=== PATIENT | female | born 1955 | race Two or more races ===

== ENCOUNTER 2016-12-25 11:03 | Emergency (ER) | payer SELFPAY ==
[~2016-12-25] VITALS: Ht 152.4 cm; Wt 74.8 kg
[2016-12-25 11:38] LABS: BASO % 1 % (0-3); EOS % 3 % (0-3); HEMATOCRIT 39.8 % (36.0-47.0); HEMOGLOBIN 13.9 g/dL (12.0-15.5); LYMPH # 1.3 x10^3/uL (1.0-4.8); LYMPH % 34 % (24-48); MEAN CORPUSCULAR HEMOGLOBIN 33 pg (25-35); MEAN CORPUSCULAR HGB CONC 35 g/dL (31-37); MEAN CORPUSCULAR VOLUME 94 fL (79-100); MONO % 7 % (0-9); NEUT % 56 % (31-73); PLATELET COUNT 171 x10^3/uL (140-400); RED BLOOD COUNT 4.21 x10^6/uL (3.50-5.40); RED CELL DISTRIBUTION WIDTH 13.7 % (11.5-14.5); WHITE BLOOD COUNT 3.8 x10^3/uL (4.0-11.0)
--- NOTE | 2016-12-25 11:50 | EKG ---
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
[2016-12-25 11:51] LABS: PROTHROMBIN TIME PATIENT 12.2 SEC (11.7-14.0)
[2016-12-25 11:53] LABS: CALCIUM 9.3 mg/dL (8.5-10.1); CREATININE 0.6 mg/dL (0.6-1.0); GFR 102.3; POTASSIUM 3.6 mmol/L (3.5-5.1)
[2016-12-25 11:58] LABS: ALBUMIN 3.8 g/dL (3.4-5.0); MAGNESIUM 1.9 mg/dL (1.8-2.4); TOTAL BILIRUBIN 0.3 mg/dL (0.2-1.0); TOTAL PROTEIN 7.7 g/dL (6.4-8.2)
--- NOTE | 2016-12-25 12:26 | RAD ---
Portable chest, 12/25/2016: History: Dizziness, lightheadedness, headache The heart size and pulmonary vascularity are normal. The lungs are clear. There is no evidence of pleural fluid. IMPRESSION: No acute cardiopulmonary abnormality is detected.
[2016-12-25] MEDS ORDERED: IV NORMAL SALINE 1000ML BAG 1,000 ML IV ONE (12:30)
[2016-12-25] MEDS ORDERED: KETOROLAC TROMETHAMINE 30 MG/ML INJ. IV ONE (12:30)
[2016-12-25] MEDS ORDERED: MECLIZINE HCL 12.5 MG TABLET. PO ONE (12:30)
--- NOTE | 2016-12-25 12:48 | PHYS DOC ---
Past Medical History Past Medical History: GERD Alcohol Use: None Drug Use: None Adult General Chief Complaint Chief Complaint: DIZZY/LIGHT HEADED HPI HPI Patient is a 61 year old female who presents with dizziness and headache. Patient's been having intermittent symptoms since Saturday, she notes it worsens when she makes sudden movements and when she attempts to walk. She cannot recall if she's had these symptoms in the past. She is attempted allergy medication 1 without relief. She states she has chronic seasonal allergies and has had chronic highness drainage without change. Denies any known fevers, no focal weakness. Her primary care doctors at the [facility] [place] at . She also takes acid reflux medication. Review of Systems Review of Systems Constitutional: Denies fever or chills [] Eyes: Denies change in visual acuity, redness, or eye pain [] HENT: Denies nasal congestion or sore throat [] Respiratory: Denies cough or shortness of breath [] Cardiovascular: Denies Chest pain GI: Denies abdominal pain, nausea, vomiting, bloody stools or diarrhea [] : Denies dysuria or hematuria [] Musculoskeletal: Denies back pain or joint pain [] Integument: Denies rash or skin lesions [] Neurologic: Denies focal weakness or sensory changes [] Current Medications Current Medications Current Medications Medications (Trade) Dose Ordered Sig/Casey Start Time Stop Time Status Last Admin Dose Admin Ketorolac Tromethamine (Toradol) 30 mg 1X ONCE 12/25/16 12:30 12/25/16 12:31 DC 12/25/16 13:05 30 MG Meclizine HCl (Antivert) 25 mg 1X ONCE 12/25/16 12:30 12/25/16 12:31 DC 12/25/16 13:04 25 MG Sodium Chloride 1,000 ml @ 1,000 mls/hr 1X ONCE 12/25/16 12:30 12/25/16 13:29 DC 12/25/16 13:04 1,000 MLS/HR Allergies Allergies Allergies Coded Allergies Type Severity Reaction Last Updated Verified No Known Drug Allergies 12/25/16 No Physical Exam Physical Exam Constitutional: Well developed, well nourished, no acute distress, non-toxic appearance. [] HENT: Normocephalic, atraumatic, bilateral external ears normal, oropharynx moist, no oral exudates, nose normal. [] Eyes: PERRLA, EOMI, conjunctiva normal, no discharge. [] Neck: Normal range of motion, no tenderness, supple, no stridor. [] Cardiovascular:Heart rate regular with regular rhythm, no murmur [] Lungs & Thorax: Bilateral breath sounds clear to auscultation, no wheeze or crackles Abdomen: Bowel sounds normal, soft, no tenderness, no masses, no pulsatile masses. [] Skin: Warm, dry, no erythema, no rash. [] Back: No tenderness, no CVA tenderness. [] Extremities: No tenderness, no cyanosis, no clubbing, ROM intact, no edema. [] Neurologic: Alert and oriented X 3, normal motor function, normal sensory function, no focal deficits noted. cranial nerves II through XII intact, normal cerebellar function with finger to nose, normal heel to butler bilaterally Current Patient Data Vital Signs Vital Signs Date Time Temp Pulse Resp B/P (MAP) Pulse Ox O2 Delivery O2 Flow Rate FiO2 12/25/16 14:33 68 14 126/62 (83) 98 Room Air 12/25/16 11:19 98.0 98.0 Lab Values Laboratory Tests Test 12/25/16 11:22 12/25/16 11:26 Glucose (Fingerstick) 137 mg/dL (70-99) H White Blood Count 3.8 x10^3/uL (4.0-11.0) L Red Blood Count 4.21 x10^6/uL (3.50-5.40) Hemoglobin 13.9 g/dL (12.0-15.5) Hematocrit 39.8 % (36.0-47.0) Mean Corpuscular Volume 94 fL (79-100) Mean Corpuscular Hemoglobin 33 pg (25-35) Mean Corpuscular Hemoglobin Concent 35 g/dL (31-37) Red Cell Distribution Width 13.7 % (11.5-14.5) Platelet Count 171 x10^3/uL (140-400) Neutrophils (%) (Auto) 56 % (31-73) Lymphocytes (%) (Auto) 34 % (24-48) Monocytes (%) (Auto) 7 % (0-9) Eosinophils (%) (Auto) 3 % (0-3) Basophils (%) (Auto) 1 % (0-3) Neutrophils # (Auto) 2.1 x10^3uL (1.8-7.7) Lymphocytes # (Auto) 1.3 x10^3/uL (1.0-4.8) Monocytes # (Auto) 0.2 x10^3/uL (0.0-1.1) Eosinophils # (Auto) 0.1 x10^3/uL (0.0-0.7) Basophils # (Auto) 0.0 x10^3/uL (0.0-0.2) Prothrombin Time 12.2 SEC (11.7-14.0) Prothrombin Time INR 1.0 (0.8-1.1) Sodium Level 141 mmol/L (136-145) Potassium Level 3.6 mmol/L (3.5-5.1) Chloride Level 103 mmol/L (98-107) Carbon Dioxide Level 30 mmol/L (21-32) Anion Gap 8 (6-14) Blood Urea Nitrogen 10 mg/dL (7-20) Creatinine 0.6 mg/dL (0.6-1.0) Estimated GFR (Cockcroft-Gault) 102.3 BUN/Creatinine Ratio 17 (6-20) Glucose Level 117 mg/dL (70-99) H Calcium Level 9.3 mg/dL (8.5-10.1) Magnesium Level 1.9 mg/dL (1.8-2.4) Total Bilirubin 0.3 mg/dL (0.2-1.0) Aspartate Amino Transferase (AST) 24 U/L (15-37) Alanine Aminotransferase (ALT) 29 U/L (14-59) Alkaline Phosphatase 103 U/L (46-116) Troponin I Quantitative < 0.017 ng/mL (0.000-0.055) AN-Pkk-N-Type Natriuretic Peptide 40 pg/mL (0-124) Total Protein 7.7 g/dL (6.4-8.2) Albumin 3.8 g/dL (3.4-5.0) Albumin/Globulin Ratio 1.0 (1.0-1.7) Laboratory Tests 12/25/16 11:26 Laboratory Tests 12/25/16 11:26 EKG EKG 76 bpm, sinus, normal axis, normal intervals, no ST elevation or depression, nonischemic T waves, interpreted by me [] Radiology/Procedures Radiology/Procedures Chest x-ray: IMPRESSION: No acute cardiopulmonary abnormality is detected. CT head: IMPRESSION: No acute intracranial abnormality is detected. Course & Med Decision Making Course & Med Decision Making Pertinent Labs and Imaging studies reviewed. (See chart for details) Patient is given IV fluids, meclizine and IV Toradol. She reports her symptoms were improved. Patient seems to be exhibiting symptoms of vertigo. Counseled her on home treatments, return precautions, keep follow-up appointment with PCP on Saturday. Discharged with meclizine. Dragon Disclaimer Dragon Disclaimer This electronic medical record was generated, in whole or in part, using a voice recognition dictation system. Departure Departure Impression: Primary Impression: Vertigo Disposition: HOME, SELF-CARE Condition: IMPROVED Referrals: UNKNOWN PCP NAME (PCP) Scripts Meclizine Hcl (MECLIZINE HCL) 25 Mg Tablet 25 MG PO PRN TID Y for dizziness, #24 dizziness Prov: VALENTÍN DALAL MD 12/25/16 VALENTÍN DALAL MD Dec 25, 2016 12:48
--- NOTE | 2016-12-25 13:02 | RAD ---
CT of the head without contrast, 12/25/2016: History: Dizziness, headache The ventricles are within normal limits in size. There is no shift of the midline structures. There is no evidence of acute intracranial hemorrhage or mass effect. IMPRESSION: No acute intracranial abnormality is detected. PQRS Compliance Statement: One or more of the following individualized dose reduction techniques were utilized for this examination: 1. Automated exposure control 2. Adjustment of the mA and/or kV according to patient size 3. Use of iterative reconstruction technique
[2016-12-25] MEDS ORDERED: MECL25TA3 PO (14:27)
[2016-12-25 14:33] VITALS: BP 126/62
== END 2016-12-25 14:38 | disposition home or self-care (01) ==
LOC: ER 11:03
DX: R42 Dizziness and giddiness (principal)
CPT/HCPCS: 36415; 70450; 71010; 80053; 82962; 83735; 83880; 84484; 85027; 85610; 93005; 96361; 96374; 99285; C1887; J1885; J7030; J8597

== ENCOUNTER 2018-11-27 10:47 | Emergency (ER) | payer SELFPAY ==
[~2018-11-27] VITALS: Ht 152.4 cm; Wt 78.9 kg
[~2018-11-27 10:47] MED LIST: MECL25TA3 PO
[2018-11-27 11:20] LABS: BASO % 0 % (0-3); EOS % 0 % (0-3); HEMATOCRIT 38.2 % (36.0-47.0); HEMOGLOBIN 13.2 g/dL (12.0-15.5); LYMPH # 1.2 x10^3/uL (1.0-4.8); LYMPH % 22 % (24-48); MEAN CORPUSCULAR HEMOGLOBIN 33 pg (25-35); MEAN CORPUSCULAR HGB CONC 35 g/dL (31-37); MEAN CORPUSCULAR VOLUME 94 fL (79-100); MONO # 0.2 x10^3/uL (0.0-1.1); MONO % 4 % (0-9); NEUT % 73 % (31-73); PLATELET COUNT 187 x10^3/uL (140-400); RED BLOOD COUNT 4.06 x10^6/uL (3.50-5.40); RED CELL DISTRIBUTION WIDTH 13.3 % (11.5-14.5); WHITE BLOOD COUNT 5.4 x10^3/uL (4.0-11.0)
--- NOTE | 2018-11-27 11:34 | RAD ---
EXAM: CHEST 1 VIEW History: Chest pain COMPARISON: 12/25/2016 TECHNIQUE: Single portable radiograph of the chest FINDINGS: The cardiac silhouette is unremarkable. The lungs are clear bilaterally. The costophrenic sulci are clear and well demarcated. IMPRESSION: No radiographic evidence of an acute cardiopulmonary process. Electronically signed by: Karl Gaines MD (11/27/2018 11:31 AM) [id number]
[2018-11-27 11:35] LABS: PROTHROMBIN TIME PATIENT 13.2 SEC (11.7-14.0)
[2018-11-27 11:37] LABS: CALCIUM 9.4 mg/dL (8.5-10.1); CREATININE 0.7 mg/dL (0.6-1.0); GFR 85.1; POTASSIUM 3.5 mmol/L (3.5-5.1)
[2018-11-27 11:48] LABS: ALBUMIN 3.9 g/dL (3.4-5.0); ALBUMIN/GLOBULIN RATIO 1.1 (1.0-1.7); MAGNESIUM 1.9 mg/dL (1.8-2.4); TOTAL BILIRUBIN 0.4 mg/dL (0.2-1.0); TOTAL PROTEIN 7.4 g/dL (6.4-8.2)
--- NOTE | 2018-11-27 11:52 | PHYS DOC ---
Past Medical History Past Medical History: Anxiety, GERD, Hypertension Additional Past Medical Histor: VERTIGO, Past Surgical History: No Surgical History Alcohol Use: None Drug Use: None Adult General Chief Complaint Chief Complaint: CHEST PAIN HPI HPI Patient is a 63 year old female who presents with complaining of chest pain. Patient complaining of intermittent episodes of substernal chest pain as an aching pain with feeling hot in her chest with nausea and dizziness that lasts for few minutes and usually happen after eating food. Patient complaining of generalized weakness and not feeling good with episodes of chest pain. Patient states she had history of gallstone 4 years ago but did not follow up with a surgeon because she did not have any problem. Review of Systems Review of Systems Constitutional: Denies fever or chills [] Eyes: Denies change in visual acuity, redness, or eye pain [] HENT: Denies nasal congestion or sore throat [] Respiratory: Denies cough or shortness of breath [] Cardiovascular: No additional information not addressed in HPI [] GI: Denies abdominal pain, vomiting, bloody stools or diarrhea [] : Denies dysuria or hematuria [] Musculoskeletal: Denies back pain or joint pain [] Integument: Denies rash or skin lesions [] Neurologic: Denies headache, focal weakness or sensory changes [] Endocrine: Denies polyuria or polydipsia [] All other systems were reviewed and found to be within normal limits, except as documented in this note. Current Medications Current Medications Current Medications Medications (Trade) Dose Ordered Sig/Casey Start Time Stop Time Status Last Admin Dose Admin Ketorolac Tromethamine (Toradol 30mg Vial) 30 mg 1X ONCE 11/27/18 13:30 11/27/18 13:31 DC 11/27/18 13:42 30 MG Lorazepam (Ativan Inj) 0.5 mg 1X ONCE 11/27/18 13:30 11/27/18 13:31 DC 11/27/18 13:42 0.5 MG Ondansetron HCl (Zofran) 4 mg 1X ONCE 11/27/18 13:30 11/27/18 13:31 DC 11/27/18 13:42 4 MG Allergies Allergies Allergies Coded Allergies Type Severity Reaction Last Updated Verified No Known Drug Allergies 12/25/16 No Physical Exam Physical Exam Constitutional: Well developed, well nourished, mild distress, non-toxic appearance. [] HENT: Normocephalic, atraumatic. Eyes: PERRLA, EOMI, conjunctiva normal, no discharge. [] Neck: Normal range of motion, no tenderness, supple, no stridor. [] Cardiovascular:Heart rate regular rhythm, no murmur [] Lungs & Thorax: Bilateral breath sounds clear to auscultation [] Abdomen: Bowel sounds normal, soft, no tenderness, no masses, no pulsatile masses. [] Skin: Warm, dry, no erythema, no rash. [] Back: No tenderness, no CVA tenderness. [] Extremities: No tenderness, no cyanosis, no clubbing, ROM intact, no edema. [] Neurologic: Alert and oriented X 3, normal motor function, normal sensory function, no focal deficits noted. [] Psychologic: Affect anxious, judgement normal, mood normal. [] Current Patient Data Vital Signs Vital Signs Date Time Temp Pulse Resp B/P (MAP) Pulse Ox O2 Delivery O2 Flow Rate FiO2 11/27/18 13:55 65 126/68 (87) 98 Room Air 11/27/18 10:51 98.3 18 98.3 Lab Values Laboratory Tests Test 11/27/18 11:04 White Blood Count 5.4 x10^3/uL (4.0-11.0) Red Blood Count 4.06 x10^6/uL (3.50-5.40) Hemoglobin 13.2 g/dL (12.0-15.5) Hematocrit 38.2 % (36.0-47.0) Mean Corpuscular Volume 94 fL (79-100) Mean Corpuscular Hemoglobin 33 pg (25-35) Mean Corpuscular Hemoglobin Concent 35 g/dL (31-37) Red Cell Distribution Width 13.3 % (11.5-14.5) Platelet Count 187 x10^3/uL (140-400) Neutrophils (%) (Auto) 73 % (31-73) Lymphocytes (%) (Auto) 22 % (24-48) L Monocytes (%) (Auto) 4 % (0-9) Eosinophils (%) (Auto) 0 % (0-3) Basophils (%) (Auto) 0 % (0-3) Neutrophils # (Auto) 4.0 x10^3uL (1.8-7.7) Lymphocytes # (Auto) 1.2 x10^3/uL (1.0-4.8) Monocytes # (Auto) 0.2 x10^3/uL (0.0-1.1) Eosinophils # (Auto) 0.0 x10^3/uL (0.0-0.7) Basophils # (Auto) 0.0 x10^3/uL (0.0-0.2) Prothrombin Time 13.2 SEC (11.7-14.0) Prothrombin Time INR 1.0 (0.8-1.1) Sodium Level 140 mmol/L (136-145) Potassium Level 3.5 mmol/L (3.5-5.1) Chloride Level 102 mmol/L (98-107) Carbon Dioxide Level 26 mmol/L (21-32) Anion Gap 12 (6-14) Blood Urea Nitrogen 10 mg/dL (7-20) Creatinine 0.7 mg/dL (0.6-1.0) Estimated GFR (Cockcroft-Gault) 85.1 BUN/Creatinine Ratio 14 (6-20) Glucose Level 151 mg/dL (70-99) H Calcium Level 9.4 mg/dL (8.5-10.1) Magnesium Level 1.9 mg/dL (1.8-2.4) Total Bilirubin 0.4 mg/dL (0.2-1.0) Aspartate Amino Transferase (AST) 32 U/L (15-37) Alanine Aminotransferase (ALT) 45 U/L (14-59) Alkaline Phosphatase 84 U/L (46-116) Creatine Kinase 68 U/L (26-192) Troponin I Quantitative < 0.017 ng/mL (0.000-0.055) TD-Hwk-E-Type Natriuretic Peptide 69 pg/mL (0-124) Total Protein 7.4 g/dL (6.4-8.2) Albumin 3.9 g/dL (3.4-5.0) Albumin/Globulin Ratio 1.1 (1.0-1.7) Lipase 145 U/L (73-393) Laboratory Tests 11/27/18 11:04 Laboratory Tests 11/27/18 11:04 EKG EKG EKG interpreted by me. EKG at 1052 showed normal sinus rhythm at rate of 82, left norwood axis, poor R-wave progress in anteroseptal leads, no acute ST and T- wave abnormalities. Radiology/Procedures Radiology/Procedures [][facility] [address] [place] [address] IMAGING REPORT Signed PATIENT: XUAN MIRZA ACCOUNT: [id number] : 1955 LOCATION: ER AGE: 63 SEX: F EXAM STATUS: PRE ER ORD. PHYSICIAN: LELE POPE MD REASON: chest pain.pt states having warm feeling in chest,pain 3 weeks. PROCEDURE: PORTABLE CHEST 1V EXAM: CHEST 1 VIEW History: Chest pain COMPARISON: 12/25/2016 TECHNIQUE: Single portable radiograph of the chest FINDINGS: The cardiac silhouette is unremarkable. The lungs are clear bilaterally. The costophrenic sulci are clear and well demarcated. IMPRESSION: No radiographic evidence of an acute cardiopulmonary process. Electronically signed by: Karl Gaines MD (11/27/2018 11:31 AM) [facility] DICTATED and SIGNED BY: KARL GAINES MD DATE: 11/27/18 1131 [facility] [address] [place] [address] IMAGING REPORT Signed PATIENT: XUAN MIRZA ACCOUNT: [id number] : 1955 LOCATION: ER AGE: 63 SEX: F EXAM STATUS: PRE ER ORD. PHYSICIAN: LELE POPE MD REASON: substernal pain for 3 weeks PROCEDURE: ABDOMEN LTD Examination: Ultrasound abdomen limited HISTORY: History of substernal pain for 3 weeks COMPARISON: None available FINDINGS: The echogenicity liver grossly appears unremarkable. The liver length measures 17.1 cm. The common bile duct measures 5.3 mm in diameter. The visualized pancreas grossly appears unremarkable. The gallbladder wall thickness measures 3.1 mm. Multiple gallstones identified within the gallbladder with a wall echo shadowing. The right kidney measures 10.9 cm in length. The visualized IVC grossly appears unremarkable. IMPRESSION: 1. Multiple gallstones identified within the gallbladder with wall echo shadowing. Electronically signed by: Karl Gaines MD (11/27/2018 11:53 AM) [facility] DICTATED and SIGNED BY: KARL GAINES MD DATE: 11/27/18 1153 Course & Med Decision Making Course & Med Decision Making Pertinent Labs and Imaging studies reviewed. (See chart for details) Evaluation of patient in ER showed 63-year-old female patient with complaining of episodes of nausea and his pain for 3 weeks after eating. Patient had gallstone without any cystitis and was advised to follow-up with surgeon. Patient was very anxious in ER and treated with Ativan with improvement of her condition. Dragon Disclaimer Dragon Disclaimer This electronic medical record was generated, in whole or in part, using a voice recognition dictation system. Departure Departure Impression: Primary Impression: Biliary colic Additional Impressions: Non-cardiac chest pain Anxiety Disposition: HOME, SELF-CARE (at 1322) Condition: IMPROVED Referrals: UNKNOWN PCP NAME (PCP) EVENS ARTHUR MD Patient Instructions: Biliary Colic, Cholelithiasis Additional Instructions: Drink plenty of liquids Follow-up with your primary care physician in 3-5 days Return to ER if not getting better Do not eat greasy food Follow-up with on-call surgeon in 2-3 days for the moving of the gallbladder Scripts Ondansetron Hcl (ZOFRAN) 4 Mg Tablet 1 TAB PO PRN Q6-8HRS for nausea, #12 TAB Prov: LELE POPE MD 11/27/18 Ranitidine Hcl (ZANTAC) 150 Mg Tablet 1 TAB PO BID for dyspepsia, #30 TAB 0 Refills Prov: LELE POPE MD 11/27/18 Tramadol Hcl (ULTRAM) 50 Mg Tablet 50 MG PO Q6HRS PRN for PAIN, #14 TAB 0 Refills Prov: LELE POPE MD 11/27/18 The HEART Score for CP Pts HEART Score for Chest Pain: HEART Score for Chest Pain Response (Comments) Value History Slighlty/Non-Suspicious 0 ECG Nonspecific Repolarizatio 1 Age >45 - < 65 1 Risk Factors 1 or 2 Risk Factors 1 Troponin < Normal Limit 0 Total 3 Risk Factors: Risk Factors: DM, Current or recent (<one month) smoker, HTN, HLP, family history of CAD, obesity. Risk Scores: Score 0 - 3: 2.5% MACE over next 6 weeks - Discharge Home Score 4 - 6: 20.3% MACE over next 6 weeks - Admit for Clinical Observation Score 7 - 10: 72.7% MACE over next 6 weeks - Early Invasive Strategies Problem Qualifiers LELE POPE MD Nov 27, 2018 11:52
--- NOTE | 2018-11-27 11:56 | RAD ---
Examination: Ultrasound abdomen limited HISTORY: History of substernal pain for 3 weeks COMPARISON: None available FINDINGS: The echogenicity liver grossly appears unremarkable. The liver length measures 17.1 cm. The common bile duct measures 5.3 mm in diameter. The visualized pancreas grossly appears unremarkable. The gallbladder wall thickness measures 3.1 mm. Multiple gallstones identified within the gallbladder with a wall echo shadowing. The right kidney measures 10.9 cm in length. The visualized IVC grossly appears unremarkable. IMPRESSION: 1. Multiple gallstones identified within the gallbladder with wall echo shadowing. Electronically signed by: Karl Gaines MD (11/27/2018 11:53 AM) [facility]
--- NOTE | 2018-11-27 13:03 | EKG ---
[facility] [address] [place] [address] Test Date: 2018-11-27 Test Time: 10:53:47 Pat Name: XUAN MIRZA Department: Room: Gender: F Cloud Operations Engineer: : 1955 Requested By: LELE POPE Order Number: [id number] Reading MD: Measurements Intervals [place] Rate: 82 P: 43 MA: 134 QRS: -5 QRSD: 80 T: 24 QT: 330 QTc: 388 Interpretive Statements SINUS RHYTHM LEFTWARD AXIS QRS(T) CONTOUR ABNORMALITY CONSIDER ANTEROLATERAL MYOCARDIAL DAMAGE POSSIBLY ABNORMAL ECG RI6.01 No previous ECG available for comparison
[2018-11-27] MEDS ORDERED: RANI-376 PO (13:27)
[2018-11-27] MEDS ORDERED: TRAM-48 PO (13:27)
[2018-11-27] MEDS ORDERED: ONDA4TAB7 PO (13:27)
[2018-11-27] MEDS ORDERED: ONDANSETRON PF 4 MG/2 ML VIAL. IV ONE (13:30)
[2018-11-27] MEDS ORDERED: KETOROLAC 30 MG/ML VIAL. IV ONE (13:30)
[2018-11-27 13:55] VITALS: BP 126/68
== END 2018-11-27 14:02 | disposition home or self-care (01) ==
LOC: ER 10:47
DX: R07.2 Precordial pain (principal); K80.50 Calculus of bile duct without cholangitis or cholecystitis without obstruction; F41.9 Anxiety disorder, unspecified; R42 Dizziness and giddiness; R11.0 Nausea; K21.9 Gastro-esophageal reflux disease without esophagitis; I10 Essential (primary) hypertension
CPT/HCPCS: 36415; 71045; 76705; 80053; 82550; 83690; 83735; 83880; 84484; 85025; 85610; 93005; 96374; 96375; 99285; J1885; J2060; J2405

== ENCOUNTER 2018-12-17 08:15 | Day surgery (SDC) | payer OTHER ==
[~2018-12-17] VITALS: Ht 152.4 cm; Wt 75.0 kg
[~2018-12-17 08:15] MED LIST changes: +HYDROmorphone 2 MG/ML VIAL IV PRN; +IV RINGERS,LACTATED 1000ML 1,000 ML IV SCH; +MORPHINE SULFATE 2 MG/ML VIAL. IV PRN; +ONDA4TAB7 PO; +ONDANSETRON PF 4 MG/2 ML VIAL. IV PRN; +PROCHLORPERAZINE 10 MG/2 ML VIAL. IV PRN; +RANI-376 PO; +TRAM-48 PO; +fentaNYL PF VIAL 100 MCG/2 ML VIAL IV PRN
[2018-12-17] MEDS ORDERED: LIDOCAINE 2% PF 5 ML VIAL. ONE (08:26)
[2018-12-17] MEDS ORDERED: ROCURONIUM 50 MG/5 ML VIAL. ONE (08:26)
[2018-12-17] MEDS ORDERED: ONDANSETRON PF 4 MG/2 ML VIAL. ONE (08:26)
[2018-12-17] MEDS ORDERED: FAMOTIDINE 20 MG/2 ML VIAL ONE (08:26)
[2018-12-17] MEDS ORDERED: PROPOFOL 20 ML IV ONE (08:26)
[2018-12-17] MEDS ORDERED: SUCCINYLCHOLINE 200 MG/10 ML VIAL. ONE (08:27)
[2018-12-17] MEDS ORDERED: DEXAMETHASONE SOD PHOS 20 MG/5 ML VIAL. ONE (08:27)
[2018-12-17] MEDS ORDERED: fentaNYL PF VIAL 100 MCG/2 ML VIAL ONE ×2 (08:28→11:37)
[2018-12-17] MEDS ORDERED: MIDAZOLAM HCL/PF 2 MG/2 ML VIAL. ONE (08:29)
[2018-12-17] MEDS ORDERED: BUPIVAC MPF-EPI 0.5%-1:200000 30 ML VIAL. ONE (08:38)
[2018-12-17] MEDS ORDERED: IOHEXOL 300 MG/ML 50 ML VIAL. ONE (08:38)
[2018-12-17] MEDS ORDERED: GLUCAGON,HUMAN RECOMBINANT 1 MG/ML VIAL. ONE (08:38)
[2018-12-17] MEDS ORDERED: SURGICEL HEMOSTAT 4X8 EACH. ONE (08:38)
[2018-12-17] MEDS ORDERED: HYDR-2761 PO (08:48)
[2018-12-17] MEDS ORDERED: LISI-338 PO (08:48)
[2018-12-17] MEDS ORDERED: NEOSTIGMINE METHYLSULFATE 5 MG/5 ML SYRINGE. ONE (10:18)
[2018-12-17] MEDS ORDERED: GLYCOPYRROLATE 1 MG/5 ML VIAL. ONE (10:18)
[2018-12-17] MEDS ORDERED: KETOROLAC 30 MG/ML INJ FOR OR. INJ ONE (10:19)
[2018-12-17] MEDS ORDERED: SEVOFLURANE 61 TO 120 MINUTES. IH ONE (10:26)
--- NOTE | 2018-12-17 10:50 | RAD ---
Cholangiogram fluoroscopy 12/17/2018 10:32 AM INDICATION: Cholangiogram in OR with C-arm COMPARISON: Ultrasound abdomen November 27, 2018 TECHNIQUE: 5 fluoroscopic spot views are provided. Fluoroscopy time: 0.26 minutes FINDINGS: Fluoroscopy is provided for intraoperative use. Intraoperative cholangiogram was performed with contrast opacification of the intrahepatic and extra hepatic biliary tree. Contrast is identified extending into the small bowel. No filling defects are identified. IMPRESSION: 1. Intraoperative cholangiogram without definite filling defect. 2. Please refer to the separate operative report for further details. Electronically signed by: Nica Hernández MD (12/17/2018 10:47 AM) [id number]
--- NOTE | 2018-12-17 11:12 | DISCH ---
DISCHARGE INSTRUCTIONS Condition on Discharge Condition on Discharge: Stable Activity After Discharge Activity Instructions for Disc: Activity as tolerated, Avoid exertion Lifting Instructions after Dis: No heavy lifting Driving Instructions after Dis: Do not drive (3-4 days) Diet after Discharge Diet after Discharge: Regular Wound Incision Care Wound/Incision Care: Ice to area for comfort Other wound/incision instructi: october shower Saturday CLARY WEINSTEIN MD Dec 17, 2018 11:12
[2018-12-17] MEDS ORDERED: PROCHLORPERAZINE 10 MG/2 ML VIAL. ONE (11:19)
--- NOTE | 2018-12-17 11:23 | PDOC ---
BRIEF OPERATIVE NOTE Date: Dec 17, 2018 Pre-Op Diagnosis symptomatic cholelithiasis Post-Op Diagnosis same Procedure Performed l/s william with cholangiograms Surgeon Tree LUCASA Anesthesia Type: General Blood Loss 10cc IV Fluid 700cc Specimens Obtained GB Findings stone filled GB, normal grams Complications none Operative Note Wk # [id number] CLARY WEINSTEIN MD Dec 17, 2018 11:23
[2018-12-17] MEDS: fentaNYL PF VIAL 100 MCG/2 ML VIAL IV PRN ×2 (11:39→12:05)
[2018-12-17] MEDS ORDERED: HYDR-3164 PO (11:41)
[2018-12-17] MEDS ORDERED: HYDROcodone/APAP 5/325MG 1 TAB TABLET PO ONE (11:45)
--- NOTE | 2018-12-17 12:26 | OP ---
DATE OF SURGERY: 12/17/2018 PREOPERATIVE DIAGNOSIS: Symptomatic cholelithiasis. POSTOPERATIVE DIAGNOSIS: Symptomatic cholelithiasis. PROCEDURE: Laparoscopic cholecystectomy with cholangiogram. SURGEON: Corey Weinstein MD PURIFICATION OPERATOR HELPER: VERONICA Hernandez ANESTHESIA: General endotracheal. ESTIMATED BLOOD LOSS: 10 mL. INTRAVENOUS FLUIDS: 700 mL. INDICATIONS: The patient is a 63-year-old female with symptomatic stones. OPERATIVE FINDINGS: The liver was smooth and sharp. The gallbladder was stone filled. Visual inspection of the remainder of the abdomen failed to reveal obvious abnormalities. DESCRIPTION OF PROCEDURE: The patient brought to the operating suite, given a general endotracheal anesthetic and the abdomen prepped and draped in usual sterile fashion. A supraumbilical incision was infiltrated with local anesthetic, incised and a 5 mm Visiport used to gain access into the abdominal cavity. Pneumoperitoneum established. Camera inserted. Inspection carried out with results as noted above. With the table in reverse Trendelenburg rolled to the left, the epigastric, midclavicular, and lateral ports were placed under direct vision. The gallbladder was retracted superolaterally and the cystic duct and cystic artery were isolated. Duct was clipped on the gallbladder side. Cholangiograms were made. In light of this, the catheter was removed. The cystic duct was clipped x 3 and divided, taking care to avoid injury or compromise the common duct. Cystic artery was clipped and divided and the gallbladder freed from the bed with cautery dissection and placed in an EndoCatch bag. Good hemostasis was present in the fossa. No evidence of bile leak seen. Table returned to level. Gallbladder delivered through the epigastric incision, which was then closed with interrupted 0 Vicryl suture. At 6 cm of water pressure intraabdominally, no bleeding from the epigastric closure or from the midclavicular or lateral ports after their removal. Abdomen decompressed. No bleeding seen. Skin incisions closed with subcuticular 4-0 Monocryl. Steri-Strips and sterile dressing applied. The patient awakened from her anesthetic and taken to the recovery room in satisfactory condition. COREY WEINSTEIN MD DR: JORDAN/steven JOB#: [id number] / [id number]
[2018-12-17 12:40] VITALS: BP 130/58
--- NOTE | 2018-12-18 16:06 | PATHOLOGY ---
[facility] Accession Number: [id number] . 01 Material submitted: . gallbladder - GALLBLADDER AND ITS CONTENTS . 02 Diagnosis: Gallbladder, laparoscopic cholecystectomy: - Cholelithiasis. 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 (JPM:oyster sorter; 12/18/2018) MBR/12/18/2018 . 02 Comment: There is no evidence of malignancy. (JPM:oyster sorter; 12/18/2018) . 02 Electronically signed: . Raymundo Sheffield MD, Pathologist NPI- [id number] . 01 Gross description: . The specimen is received in formalin, labeled "Reynaldo Tinoco, gallbladder and its contents", is an intact gallbladder measuring 7.7 cm in length and 2.5 cm in maximum diameter with a glistening, paiz-yellow serosa. The cystic duct region is impacted by a calculus and is dilated. The gallbladder lumen contains paiz-pink viscous material and three large black calculi and multiple similar gravel material measuring 3.8 x 2.7 x 1.4 cm in aggregate. The mucosa is paiz-pink with no cholesterolosis. The wall is 0.2 cm in average thickness. Representatively submitted in A1. ([facility]; 12/17/2018) SHS/SHS . 02 Pathologist provided ICD-10: K81.1 . 02 CPT . 535778 Specimen Comment: A courtesy copy of this report has been sent to Specimen Comment: [phone]. Specimen Comment: Report sent to Performed at: [address], [place], [place] [id number] MD Manuelito Rothman MD Phone: [phone] Performed at: 02 [facility] [address] [place], [place] [id number] MD Raymundo Sheffield MD Phone: [phone]
== END 2018-12-17 14:30 | disposition home or self-care (01) ==
LOC: SURG 08:15
PROVIDERS: ATTEND Surgery
DX: K80.10 Calculus of gallbladder with chronic cholecystitis without obstruction (principal)
CPT/HCPCS: 47563; 74300; J0330; J0690; J0780; J1100; J1885; J2001; J2250; J2405; J2704; J2710; J3010; J3490; Q9967; A7015; J1610; J7030

== ENCOUNTER 2018-12-22 14:05 | Emergency (ER) | payer OTHER ==
[~2018-12-22] VITALS: Ht 152.4 cm; Wt 73.5 kg
[~2018-12-22 14:05] MED LIST changes: +HYDR-2761 PO; +HYDR-3164 PO; -HYDROmorphone 2 MG/ML VIAL IV PRN; -IV RINGERS,LACTATED 1000ML 1,000 ML IV SCH; +LISI-338 PO; -MORPHINE SULFATE 2 MG/ML VIAL. IV PRN; -ONDANSETRON PF 4 MG/2 ML VIAL. IV PRN; -PROCHLORPERAZINE 10 MG/2 ML VIAL. IV PRN; -fentaNYL PF VIAL 100 MCG/2 ML VIAL IV PRN
[2018-12-22] MEDS ORDERED: IV NORMAL SALINE 1000ML BAG 1,000 ML IV ONE (15:00)
--- NOTE | 2018-12-22 15:07 | PHYS DOC ---
Past Medical History Past Medical History: Anxiety, GERD, Hypertension Additional Past Medical Histor: VERTIGO, Past Surgical History: No Surgical History Alcohol Use: None Drug Use: None Adult General Chief Complaint Chief Complaint: DIZZY/LIGHT HEADED HPI HPI Patient is a 63-year-old female who presents to the emergency department for evaluation of dizziness. This has been an ongoing problem for the patient at least for several months. She had gallbladder surgery a week ago, and went to follow-up with her surgeon today, and when she told him that she has been having dizziness for several months, she was referred to the emergency department for further evaluation, and she was told that her surgeon does not evaluate dizziness. She denies any new symptoms today. She reports that she has been having frequent episodes of dizziness, every 5-10 minutes, which lasts several minutes. This has been ongoing for months. She states that she was seen at [facility] several months ago, and had a CT scan of her head, when she was seen for the same dizziness, and reports that was normal. I have requested a copy of the report from the facility. She denies any new pain, other than her postoperative soreness, and her surgeon was happy with the healing of her incision at her postoperative checkup today. She denies any new vision changes, numbness, weakness, tinnitus, headache, chest pain, or shortness of breath. There are no alleviating or exacerbating factors to the patient's symptoms. The patient states that while her dizziness feels like a sense of "lightheadedness", she states that she feels as if she moves her head too fast, she will develop a spinning sensation. She states that her PCP had her on meclizine and Valium, but she states that the medication made her "sick", so she stopped taking the medication, and actually is looking for a new PCP because of this. Review of Systems Review of Systems Constitutional: Denies fever or chills [] Eyes: Denies change in visual acuity, redness, or eye pain [] HENT: Denies nasal congestion or sore throat [] Respiratory: Denies cough or shortness of breath [] Cardiovascular: The patient denies any shortness of breath, chest pain, palpitations, or orthopnea [] GI: Denies abdominal pain, nausea, vomiting, bloody stools or diarrhea [] : Denies dysuria or hematuria [] Musculoskeletal: Denies back pain or joint pain [] Integument: Denies rash or skin lesions [] Neurologic: Denies headache, focal weakness or sensory changes [] Endocrine: Denies polyuria or polydipsia [] All other systems were reviewed and found to be within normal limits, except as documented in this note. Current Medications Current Medications Current Medications Medications (Trade) Dose Ordered Sig/Casey Start Time Stop Time Status Last Admin Dose Admin Sodium Chloride 1,000 ml @ 1,000 mls/hr 1X ONCE 12/22/18 15:00 12/22/18 15:59 DC 12/22/18 15:00 1,000 MLS/HR Allergies Allergies Allergies Coded Allergies Type Severity Reaction Last Updated Verified No Known Drug Allergies 12/17/18 No Physical Exam Physical Exam PHYSICAL EXAM: CONSTITUTIONAL: Well developed, well nourished HEAD: normocephalic, atraumatic EENT: PERRL, EOMI. Conjunctivae normal color, sclerae non-icteric; moist mucous membranes. NECK: Supple, non-tender; no meningismus. LUNGS: Lungs CTA, breathing even and unlabored. Normal air movement. HEART: Regular rate and rhythm, no murmur CHEST: No deformity; non-tender ABDOMEN: The abdomen is soft, and non-tender, no masses or bruits. EXTREM: Normal ROM; no deformity, no calf tenderness. Normal pulses palpable in all extremities. There is no pedal edema. SKIN: No rash; no diaphoresis NEURO: Alert; normal speech and cognition; CN's grossly intact; strength grossly intact without focal deficit. Pnreqg-mcpi-zalosm and heel butler testing is normal. There is no visual field deficit. BACK: No CVA TTP. Current Patient Data Vital Signs Vital Signs Date Time Temp Pulse Resp B/P (MAP) Pulse Ox O2 Delivery O2 Flow Rate FiO2 12/22/18 14:45 98.1 86 16 145/60 (88) Room Air 98.1 Lab Values Laboratory Tests Test 12/22/18 15:10 12/22/18 16:15 White Blood Count 5.4 x10^3/uL (4.0-11.0) Red Blood Count 4.18 x10^6/uL (3.50-5.40) Hemoglobin 13.7 g/dL (12.0-15.5) Hematocrit 40.9 % (36.0-47.0) Mean Corpuscular Volume 98 fL (79-100) Mean Corpuscular Hemoglobin 33 pg (25-35) Mean Corpuscular Hemoglobin Concent 34 g/dL (31-37) Red Cell Distribution Width 13.7 % (11.5-14.5) Platelet Count 169 x10^3/uL (140-400) Neutrophils (%) (Auto) 71 % (31-73) Lymphocytes (%) (Auto) 22 % (24-48) L Monocytes (%) (Auto) 5 % (0-9) Eosinophils (%) (Auto) 2 % (0-3) Basophils (%) (Auto) 0 % (0-3) Neutrophils # (Auto) 3.8 x10^3/uL (1.8-7.7) Lymphocytes # (Auto) 1.2 x10^3/uL (1.0-4.8) Monocytes # (Auto) 0.3 x10^3/uL (0.0-1.1) Eosinophils # (Auto) 0.1 x10^3/uL (0.0-0.7) Basophils # (Auto) 0.0 x10^3/uL (0.0-0.2) Sodium Level 143 mmol/L (136-145) Potassium Level 3.6 mmol/L (3.5-5.1) Chloride Level 103 mmol/L (98-107) Carbon Dioxide Level 31 mmol/L (21-32) Anion Gap 9 (6-14) Blood Urea Nitrogen 6 mg/dL (7-20) L Creatinine 0.7 mg/dL (0.6-1.0) Estimated GFR (Cockcroft-Gault) 85.1 BUN/Creatinine Ratio 9 (6-20) Glucose Level 141 mg/dL (70-99) H Calcium Level 9.3 mg/dL (8.5-10.1) Total Bilirubin 0.3 mg/dL (0.2-1.0) Aspartate Amino Transferase (AST) 16 U/L (15-37) Alanine Aminotransferase (ALT) 49 U/L (14-59) Alkaline Phosphatase 91 U/L (46-116) Troponin I Quantitative < 0.017 ng/mL (0.000-0.055) WE-Xkr-R-Type Natriuretic Peptide 97 pg/mL (0-124) Total Protein 7.5 g/dL (6.4-8.2) Albumin 3.8 g/dL (3.4-5.0) Albumin/Globulin Ratio 1.0 (1.0-1.7) Urine Collection Type Void Urine Color Yellow Urine Clarity Clear Urine pH 7.0 Urine Specific [place] <=1.005 Urine Protein Negative mg/dL (NEG-TRACE) Urine Glucose (UA) Negative mg/dL (NEG) Urine Ketones (Stick) Negative mg/dL (NEG) Urine Blood Negative (NEG) Urine Nitrite Negative (NEG) Urine Bilirubin Negative (NEG) Urine Urobilinogen Dipstick 0.2 mg/dL (0.2 mg/dL) Urine Leukocyte Esterase Trace (NEG) Urine RBC 0 /HPF (0-2) Urine WBC Rare /HPF (0-4) Urine Squamous Epithelial Cells Occ /LPF Urine Bacteria 0 /HPF (0-FEW) Laboratory Tests 12/22/18 15:10 Laboratory Tests 12/22/18 15:10 EKG EKG Normal sinus rhythm with a normal rate, normal axis, normal intervals, there are no acute ischemic ST/T changes. Poor anterior R-wave progression is present. Radiology/Procedures Radiology/Procedures [] Course & Med Decision Making Course & Med Decision Making Pertinent Labs and Imaging studies reviewed. (See chart for details) []5:10 PM: The patient's condition remains stable. I discussed test results with the patient, the need for close outpatient neurology and ENT follow-up, and return precautions. She does have meclizine at home, and states that she might still use it to manage her symptoms. I encouraged this. Return precautions were discussed in detail. Dragon Disclaimer Dragon Disclaimer This electronic medical record was generated, in whole or in part, using a voice recognition dictation system. Departure Departure Impression: Primary Impression: Dizziness Disposition: 01 HOME, SELF-CARE Condition: STABLE Referrals: DEEPA CAICEDO MD, COLLEEN N MD Patient Instructions: Dizziness, Vertigo BACILIO MCELROY MD Dec 22, 2018 15:07
--- NOTE | 2018-12-22 15:18 | EKG ---
[facility] [address] [place] [address] Test Date: 2018-12-22 Test Time: 14:52:58 Pat Name: XUAN MIRZA Department: Room: Gender: F Manager Income Tax: : 1955 Requested By: BACILIO MCELROY Order Number: [id number] Reading MD: Measurements Intervals [place] Rate: 94 P: 62 NE: 138 QRS: 2 QRSD: 78 T: 20 QT: 336 QTc: 425 Interpretive Statements SINUS RHYTHM QRS(T) CONTOUR ABNORMALITY CONSIDER ANTEROLATERAL MYOCARDIAL DAMAGE POSSIBLY ABNORMAL ECG RI6.01 Unconfirmed report No previous ECG available for comparison
[2018-12-22 16:12] LABS: BASO % 0 % (0-3); EOS # 0.1 x10^3/uL (0.0-0.7); EOS % 2 % (0-3); HEMATOCRIT 40.9 % (36.0-47.0); HEMOGLOBIN 13.7 g/dL (12.0-15.5); LYMPH # 1.2 x10^3/uL (1.0-4.8); LYMPH % 22 % (24-48); MEAN CORPUSCULAR HEMOGLOBIN 33 pg (25-35); MEAN CORPUSCULAR HGB CONC 34 g/dL (31-37); MEAN CORPUSCULAR VOLUME 98 fL (79-100); MONO # 0.3 x10^3/uL (0.0-1.1); MONO % 5 % (0-9); NEUT # 3.8 x10^3/uL (1.8-7.7); NEUT % 71 % (31-73); PLATELET COUNT 169 x10^3/uL (140-400); RED BLOOD COUNT 4.18 x10^6/uL (3.50-5.40); RED CELL DISTRIBUTION WIDTH 13.7 % (11.5-14.5); WHITE BLOOD COUNT 5.4 x10^3/uL (4.0-11.0)
[2018-12-22 16:28] LABS: CALCIUM 9.3 mg/dL (8.5-10.1); CREATININE 0.7 mg/dL (0.6-1.0); GFR 85.1; POTASSIUM 3.6 mmol/L (3.5-5.1)
[2018-12-22 16:41] LABS: ALBUMIN 3.8 g/dL (3.4-5.0); TOTAL BILIRUBIN 0.3 mg/dL (0.2-1.0); TOTAL PROTEIN 7.5 g/dL (6.4-8.2)
[2018-12-22 16:48] LABS: BILIRUBIN,URINE NEGATIVE (NEG); CLARITY,URINE CLEAR; COLOR,URINE YELLOW; NITRITE,URINE NEGATIVE (NEG); PROTEIN,URINE NEGATIVE (NEG-TRACE); UROBILINOGEN,URINE 0.2 mg/dL (0.2 mg/dL)
[2018-12-22 16:59] LABS: BACTERIA,URINE 0 /HPF (0-FEW); RBC,URINE 0 /HPF (0-2); SQUAMOUS EPITHELIAL CELL,UR OCC /LPF; WBC,URINE RARE /HPF (0-4)
[2018-12-22 17:00] VITALS: BP 127/61
== END 2018-12-22 17:38 | disposition home or self-care (01) ==
LOC: ER 14:05
DX: R42 Dizziness and giddiness (principal); K21.9 Gastro-esophageal reflux disease without esophagitis; I10 Essential (primary) hypertension; F41.9 Anxiety disorder, unspecified
CPT/HCPCS: 36415; 80053; 81001; 83880; 84484; 85025; 87086; 93005; 96360; 99285; J7030